=== PATIENT | male | born 1990 | race Two or more races ===

== ENCOUNTER → 2017-04-25 | Outpatient (CLI) | payer OTHER ==
[~2017-04-25] MED LIST: IBUP200C5 PO
== END | disposition home or self-care (01) ==
LOC: RAD 13:40 → MERGE 13:40 → EDBD 13:40
PROVIDERS: ATTEND Internal Medicine Endocrinology, Diabetes & Metabolism
DX: G31.9 Degenerative disease of nervous system, unspecified (principal); M30.3 Mucocutaneous lymph node syndrome [Kawasaki]
CPT/HCPCS: 70450

== ENCOUNTER 2017-08-10 03:29 | Emergency (ER) | payer SELFPAY ==
[~2017-08-10] VITALS: Ht 170.2 cm; Wt 56.3 kg
[2017-08-10 03:31] VITALS: BP 134/96
[2017-08-10] MEDS ORDERED: OXYcodone/APAP 5/325MG TABLET PO ONE (04:00)
[2017-08-10] MEDS ORDERED: IBUPROFEN 200 MG TABLET PO ONE (04:00)
[2017-08-10] MEDS ORDERED: OXYcodone/APAP 5/325MG TABLET ONE (04:08)
[2017-08-10] MEDS ORDERED: IBUPROFEN 200 MG TABLET ONE (04:08)
== END 2017-08-10 04:39 | disposition home or self-care (01) ==
LOC: ED 04:30
DX: K04.7 Periapical abscess without sinus (principal)
CPT/HCPCS: 99283